=== PATIENT | male | born 1950 | race Caucasian/White ===

== ENCOUNTER 2016-12-09 14:33 | Inpatient (IN) | payer BC ==
[2016-12-09] MEDS ORDERED: SODIUM CHLORIDE 0.9% 500 ML IV STA ×2 (15:37→16:43)
[2016-12-09 16:08] LABS: ALT 185 U/L (21-72); AST 144 U/L (17-59); Alkaline Phosphatase 81 U/L (38-126); Amylase 63 U/L (30-110); Anion Gap 12 mmol/L; Blood Urea Nitrogen 19 mg/dL (9-20); Calcium 9.4 mg/dL (8.4-10.2); Carbon Dioxide 23 mmol/L (22-30); Chloride 108 mmol/L (98-107); Glucose 130 mg/dL (74-99); Non-African American GFR(MDRD) 56 (>60 ml/min/1.73 sqM); Potassium 4.2 mmol/L (3.5-5.1); Sodium 143 mmol/L (137-145); Total Bilirubin 1.3 mg/dL (0.2-1.3); Total Protein 8.1 g/dL (6.3-8.2)
[2016-12-09 16:09] LABS: INR 1.2 (<1.2); Partial Thromboplastin Time 22.3 sec (22.0-30.0); Prothrombin Time 11.6 sec (9.0-12.0)
[2016-12-09 16:20] LABS: Basophils # (A) 0.1 k/uL (0-0.2); Basophils % (A) 0 %; CH 30.6; CHCM 33.4; Eosinophils # (A) 0.1 k/uL (0-0.7); Eosinophils % (A) 1 %; HCT 50.5 % (39.0-53.0); HDW 2.56; HGB 16.9 gm/dL (13.0-17.5); Luc # (Auto) 0.09; Luc % (Auto) 1; Lymphocytes # (A) 0.6 k/uL (1.0-4.8); Lymphocytes % (A) 4 %; MCH 30.8 pg (25.0-35.0); MCHC 33.5 g/dL (31.0-37.0); MCV 91.9 fL (80.0-100.0); Mean Platelet Volume 6.5; Monocytes # (A) 0.8 k/uL (0-1.0); Monocytes % (A) 6 %; Neutrophils # (A) 11.8 k/uL (1.3-7.7); Neutrophils % (A) 88 %; RDW 13.2 % (11.5-15.5); WBC 13.4 k/uL (3.8-10.6); WBC (Perox) 14.43
[2016-12-09 16:27] LABS: Amorphous Sediment,Urine Rare /hpf; Appearance,Urine Cloudy (Clear); Bilirubin,Urine Negative (Negative); Glucose,Urine (UA) Negative (Negative); Ketones,Urine Negative (Negative); Leukocyte Esterase,Urine Moderate (Negative); Mucus,Urine Few /hpf; Nitrite,Urine Negative (Negative); PH, Urine 5.5 (5.0-8.0); Particle Count 5010; Protein,Urine Negative (Negative); RBC,Urine 8 /hpf (0-5); Specific Gravity,Urine 1.014 (1.001-1.035); Squamous Epithelial Cell,Urine 1 /hpf (0-4); UA Billing (MACRO vs. MICRO) MICRO; WBC,Urine 17 /hpf (0-5)
--- NOTE | 2016-12-09 16:31 | CT ---
EXAMINATION TYPE: CT abdomen pelvis wo con DATE OF EXAM: 12/09/2016 COMPARISON: NONE HISTORY: LEFT FLANK PAIN. HX OF KIDNEY STONES. CT DLP: 1341.7 mGycm Examination of the solid and hollow viscera is limited given the lack of contrast. FINDINGS: LUNG BASES: No evidence for nodule. No evidence for infiltrate. LIVER/GB: The gallbladder is unremarkable. No space-occupying hepatic lesion. PANCREAS: No pancreatic mass identified. No inflammatory process seen. SPLEEN: No evidence for splenomegaly. No intrasplenic lesions seen. ADRENALS: No adrenal nodules identified. No evidence for thickening. KIDNEYS: No evidence for renal mass. Large nonobstructing calculus lower pole right kidney measuring 1.2 cm. 2 mm nonobstructing calculus lower pole left kidney. No evidence for hydronephrosis at this t shabnam. Urinary bladder is not ideally distended. BOWEL: Appendix has a normal appearance. No evidence of bowel obstruction. No inflammatory process. Lymph nodes: No evidence for adenopathy greater than 1 cm. Abdominal aorta: Atheromatous changes seen. No evidence for aneurysm. Genital organs: No significant abnormality. Other: No significant abnormality. IMPRESSION: NONOBSTRUCTIVE BILATERAL NEPHROLITHIASIS.
[2016-12-09] MEDS ORDERED: SODIUM CHLORIDE 0.9% 1,000 ML IV ONE (16:50)
[2016-12-09] MEDS ORDERED: ACETAMINOPHEN TAB 325 MG TAB PO STA (17:40)
[2016-12-09] MEDS ORDERED: ACETAMINOPHEN TAB 325 MG TAB PO PRN (18:27)
[2016-12-09] MEDS ORDERED: NALOXONE 0.4 MG/ML 1 ML VIAL IV PRN (18:27)
[2016-12-09] MEDS ORDERED: MORPHINE SULFATE 4 MG/ML SYRINGE IV PRN (18:27)
--- NOTE | 2016-12-09 19:01 | ED ---
General Adult HPI - General Chief complaint: Abdominal Pain Stated complaint: poss kidney stones Time Seen by Provider: 12/09/16 15:37 Source: patient, family, RN notes reviewed Mode of arrival: wheelchair Limitations: no limitations - History of Present Illness Initial comments: 66-year-old male with past medical history of kidney stones and hypertension presents with 2-3 week history of left flank pain. Pain suddenly worsened at 2 AM this morning. Severe sharp left-sided pain. Pain was nonradiating. Pain resolved with medications at home. Then while at work today patient had an episode of significant nausea and vomiting. He also had subjective fever and chills. Denies hematuria. Denies current pain. Patient does have past medical history of renal stones. No chest pain or shortness of breath. - Related Data Home Medications Medication Instructions Recorded Confirmed Losartan Potassium [Cozaar] 100 mg PO DAILY 12/09/16 12/09/16 Oxycontin Unknown Dose 1 tab PO ONCE PRN 12/09/16 12/09/16 Allergies Allergy/AdvReac Type Severity Reaction Status Date / Time Penicillins Allergy Rash/Hives Verified 12/09/16 15:46 Review of Systems ROS Statement: Those systems with pertinent positive or pertinent negative responses have been documented in the HPI. ROS Other: All systems not noted in ROS Statement are negative. Past Medical History Past Medical History: Hypertension Additional Past Medical History / Comment(s): kidney stones History of Any Multi-Drug Resistant Organisms: None Reported Past Surgical History: Adenoidectomy, Tonsillectomy Past Psychological History: No Psychological Hx Reported Smoking Status: Never smoker Past Alcohol Use History: None Reported Past Drug Use History: None Reported General Exam Limitations: no limitations General appearance: alert, in no apparent distress Head exam: Present: atraumatic, normocephalic Eye exam: Present: normal appearance, PERRL ENT exam: Present: normal exam, mucous membranes dry Neck exam: Present: normal inspection, full ROM. Absent: meningismus Respiratory exam: Present: normal lung sounds bilaterally. Absent: respiratory distress, wheezes Cardiovascular Exam: Present: regular rate, normal rhythm GI/Abdominal exam: Present: soft. Absent: distended, tenderness, guarding Extremities exam: Present: normal inspection, normal capillary refill. Absent: pedal edema Back exam: Present: normal inspection. Absent: CVA tenderness (R), CVA tenderness (L) Neurological exam: Present: alert, oriented X3. Absent: motor sensory deficit Psychiatric exam: Present: normal affect, normal mood Skin exam: Present: warm, dry, diaphoretic. Absent: cyanosis Course Vital Signs 12/09/16 12/09/16 15:00 17:36 Temperature 100.7 F H 101.4 F H Pulse Rate 105 H 96 Respiratory 16 18 Rate Blood Pressure 100/55 103/52 O2 Sat by Pulse 95 96 Oximetry - Reevaluation(s) Reevaluation #1: 12/09/16 18:59 Patient remains pain-free, however he is febrile while in the department. Medical Decision Making - Medical Decision Making 66-year-old male with history of kidney stones presents with left flank pain, nausea vomiting or fever or chills. Patient is pain-free while in the emergency department. Laboratory studies reveal elevated white blood cell count of 13.4, creatinine 1.29 with no known baseline. Mild lactic acidosis of 2.5. CT is obtained and is negative for obstructing stones. There is stone in both the right and left kidneys. No hydroureter, no hydronephrosis. Urinalysis shows signs of mild infection with a white blood cell count of 17. Blood culture and urine culture are pending. Patient remains febrile and has nausea along emergency department. Case is discussed with urology, there is no need for urgent urological evaluation. Patient does remain febrile and has persistent nausea, he will be admitted for IV antibiotics and IV hydration. Diagnosis: Renal stone- likely passed, UTI, sepsis, lactic acidosis, dehydration. - Lab Data Result diagrams: 12/09/16 15:44 12/09/16 15:44 Lab Results 12/09/16 12/09/16 12/09/16 Range/Units 15:44 15:44 15:44 WBC 13.4 H (3.8-10.6) k/uL RBC 5.50 (4.30-5.90) m/uL Hgb 16.9 (13.0-17.5) gm/dL Hct 50.5 (39.0-53.0) % MCV 91.9 (80.0-100.0) fL MCH 30.8 (25.0-35.0) pg MCHC 33.5 (31.0-37.0) g/dL RDW 13.2 (11.5-15.5) % Plt Count 208 (150-450) k/uL Neutrophils % 88 % Lymphocytes % 4 % Monocytes % 6 % Eosinophils % 1 % Basophils % 0 % Neutrophils # 11.8 H (1.3-7.7) k/uL Lymphocytes # 0.6 L (1.0-4.8) k/uL Monocytes # 0.8 (0-1.0) k/uL Eosinophils # 0.1 (0-0.7) k/uL Basophils # 0.1 (0-0.2) k/uL PT 11.6 (9.0-12.0) sec INR 1.2 H (<1.2) APTT 22.3 (22.0-30.0) sec Sodium 143 (137-145) mmol/L Potassium 4.2 (3.5-5.1) mmol/L Chloride 108 H (98-107) mmol/L Carbon Dioxide 23 (22-30) mmol/L Anion Gap 12 mmol/L BUN 19 (9-20) mg/dL Creatinine 1.29 H (0.66-1.25) mg/dL Est GFR (MDRD) Af Amer >60 (>60 ml/min/1.73 sqM) Est GFR (MDRD) Non-Af 56 (>60 ml/min/1.73 sqM) Glucose 130 H (74-99) mg/dL Plasma Lactic Acid Tony (0.7-2.0) mmol/L Calcium 9.4 (8.4-10.2) mg/dL Total Bilirubin 1.3 (0.2-1.3) mg/dL AST 144 H (17-59) U/L ALT 185 H (21-72) U/L Alkaline Phosphatase 81 (38-126) U/L Total Protein 8.1 (6.3-8.2) g/dL Albumin 4.7 (3.5-5.0) g/dL Amylase 63 (30-110) U/L Lipase 158 (23-300) U/L Urine Color Urine Appearance (Clear) Urine pH (5.0-8.0) Ur Specific [place] (1.001-1.035) Urine Protein (Negative) Urine Glucose (UA) (Negative) Urine Ketones (Negative) Urine Blood (Negative) Urine Nitrite (Negative) Urine Bilirubin (Negative) Urine Urobilinogen (<2.0) mg/dL Ur Leukocyte Esterase (Negative) Urine RBC (0-5) /hpf Urine WBC (0-5) /hpf Ur Squamous Epith Cells (0-4) /hpf Amorphous Sediment (None) /hpf Hyaline Casts (0-2) /lpf Urine Mucus (None) /hpf 12/09/16 12/09/16 Range/Units 15:50 16:05 WBC (3.8-10.6) k/uL RBC (4.30-5.90) m/uL Hgb (13.0-17.5) gm/dL Hct (39.0-53.0) % MCV (80.0-100.0) fL MCH (25.0-35.0) pg MCHC (31.0-37.0) g/dL RDW (11.5-15.5) % Plt Count (150-450) k/uL Neutrophils % % Lymphocytes % % Monocytes % % Eosinophils % % Basophils % % Neutrophils # (1.3-7.7) k/uL Lymphocytes # (1.0-4.8) k/uL Monocytes # (0-1.0) k/uL Eosinophils # (0-0.7) k/uL Basophils # (0-0.2) k/uL PT (9.0-12.0) sec INR (<1.2) APTT (22.0-30.0) sec Sodium (137-145) mmol/L Potassium (3.5-5.1) mmol/L Chloride (98-107) mmol/L Carbon Dioxide (22-30) mmol/L Anion Gap mmol/L BUN (9-20) mg/dL Creatinine (0.66-1.25) mg/dL Est GFR (MDRD) Af Amer (>60 ml/min/1.73 sqM) Est GFR (MDRD) Non-Af (>60 ml/min/1.73 sqM) Glucose (74-99) mg/dL Plasma Lactic Acid Tony 2.5 H* (0.7-2.0) mmol/L Calcium (8.4-10.2) mg/dL Total Bilirubin (0.2-1.3) mg/dL AST (17-59) U/L ALT (21-72) U/L Alkaline Phosphatase (38-126) U/L Total Protein (6.3-8.2) g/dL Albumin (3.5-5.0) g/dL Amylase (30-110) U/L Lipase (23-300) U/L Urine Color Yellow Urine Appearance Cloudy (Clear) Urine pH 5.5 (5.0-8.0) Ur Specific [place] 1.014 (1.001-1.035) Urine Protein Negative (Negative) Urine Glucose (UA) Negative (Negative) Urine Ketones Negative (Negative) Urine Blood Trace H (Negative) Urine Nitrite Negative (Negative) Urine Bilirubin Negative (Negative) Urine Urobilinogen 3.0 (<2.0) mg/dL Ur Leukocyte Esterase Moderate H (Negative) Urine RBC 8 H (0-5) /hpf Urine WBC 17 H (0-5) /hpf Ur Squamous Epith Cells 1 (0-4) /hpf Amorphous Sediment Rare H (None) /hpf Hyaline Casts 9 H (0-2) /lpf Urine Mucus Few H (None) /hpf Disposition Clinical Impression: Urinary tract infection Disposition: ADMITTED IP TO THIS [facility] Condition: Stable Referrals: John Mccrary MD [Primary Care Provider] - 1-2 days Decision to Admit Reason: Admit from EC Decision Date: 12/09/16 Decision Time: 18:05
[2016-12-09] MEDS: DEXTROSE 5%-0.45% NACL 1,000 ML IV SCH (20:35)
[2016-12-10] MEDS: DEXTROSE 5%-0.45% NACL 1,000 ML IV SCH (07:52)
[2016-12-10 07:55] VITALS: BP 114/66; PULSE 70; RESP 16; TEMP 97.1
[2016-12-10 08:47] LABS: Basophils % (A) 0 %; CH 30.9; CHCM 33.4; Eosinophils # (A) 0.2 k/uL (0-0.7); Eosinophils % (A) 2 %; HCT 42.1 % (39.0-53.0); HDW 2.48; HGB 14.5 gm/dL (13.0-17.5); Luc # (Auto) 0.22; Luc % (Auto) 2; Lymphocytes # (A) 1.3 k/uL (1.0-4.8); Lymphocytes % (A) 14 %; MCHC 34.5 g/dL (31.0-37.0); MCV 92.7 fL (80.0-100.0); Mean Platelet Volume 6.5; Monocytes # (A) 0.9 k/uL (0-1.0); Monocytes % (A) 10 %; Neutrophils # (A) 6.7 k/uL (1.3-7.7); Neutrophils % (A) 72 %; RBC 4.54 m/uL (4.30-5.90); RDW 13.3 % (11.5-15.5); WBC 9.3 k/uL (3.8-10.6); WBC (Perox) 9.29
[2016-12-10 09:08] LABS: ALT 138 U/L (21-72); AST 61 U/L (17-59); Alkaline Phosphatase 62 U/L (38-126); Anion Gap 8 mmol/L; Blood Urea Nitrogen 17 mg/dL (9-20); Calcium 8.4 mg/dL (8.4-10.2); Carbon Dioxide 20 mmol/L (22-30); Chloride 111 mmol/L (98-107); Glucose 95 mg/dL (74-99); Non-African American GFR(MDRD) >60 (>60 ml/min/1.73 sqM); Potassium 4.1 mmol/L (3.5-5.1); Sodium 139 mmol/L (137-145); Total Bilirubin 1.3 mg/dL (0.2-1.3); Total Protein 6.1 g/dL (6.3-8.2)
--- NOTE | 2016-12-10 13:13 | P.GSCN ---
History of Present Illness Consult date: 12/10/16 Reason for Consult: Renal calculi Requesting physician: Nakul Chadwick History of present illness: The patient is a 66-year-old male with a history of urolithiasis. One to 2 years ago, he underwent ureteroscopic removal of a calculus. He was told by Dr. Gambino at that time that he had a residual right renal calculus, for which ESWL was to be performed. However, the calculus could not be seen on a plain radiograph and therefore the procedure was not performed. The patient failed to schedule a follow-up appointment. On the night of December 08, he experienced severe left flank pain associated with chills, nausea, vomiting, dysuria, and hematuria. A computed tomography scan showed a 2 mm left lower pole renal calculus, a 12 mm right lower pole renal calculus, with no ureteral calculi seen. There was no evidence of hydronephrosis. He is feeling considerably better today. Review of Systems - Constitutional Reports chills - Gastrointestinal Reports nausea, Reports vomiting - Genitourinary Reports dysuria, Reports hematuria Past Medical History Past Medical History: Hypertension Additional Past Medical History / Comment(s): kidney stones History of Any Multi-Drug Resistant Organisms: None Reported Past Surgical History: Adenoidectomy, Tonsillectomy Past Anesthesia/Blood Transfusion Reactions: No Reported Reaction Past Psychological History: No Psychological Hx Reported Smoking Status: Never smoker Past Alcohol Use History: None Reported Past Drug Use History: None Reported - Past Family History Father Family Medical History: Liver Disease Medications and Allergies Home Medications Medication Instructions Recorded Confirmed Type Losartan Potassium [Cozaar] 100 mg PO DAILY 12/09/16 12/09/16 History Oxycontin Unknown Dose 1 tab PO ONCE PRN 12/09/16 12/09/16 History Allergies Allergy/AdvReac Type Severity Reaction Status Date / Time Penicillins Allergy Rash/Hives Verified 12/09/16 15:46 Surgical - Exam Vital Signs Temp Pulse Resp BP Pulse Ox 100.7 F H 105 H 16 100/55 95 12/09/16 15:00 12/09/16 15:00 12/09/16 15:00 12/09/16 15:00 12/09/16 15:00 - General well developed, well nourished, no distress - Respiratory normal respiratory effort - Abdomen Abdomen: soft, non tender, no guarding, no rigid, no rebound - Genitourinary normal penis with no external lesions, testicles non-tender - Neurologic no disoriented, no combative - Psychiatric oriented to time, oriented to person, oriented to place, speech is normal, memory intact Results - Labs 12/10/16 07:45 12/10/16 07:45 Abnormal Lab Results - Last 24 Hours (Table) 12/09/16 12/09/16 12/09/16 Range/Units 15:44 15:44 15:44 WBC 13.4 H (3.8-10.6) k/uL Neutrophils # 11.8 H (1.3-7.7) k/uL Lymphocytes # 0.6 L (1.0-4.8) k/uL INR 1.2 H (<1.2) Chloride 108 H (98-107) mmol/L Carbon Dioxide (22-30) mmol/L Creatinine 1.29 H (0.66-1.25) mg/dL Glucose 130 H (74-99) mg/dL Plasma Lactic Acid Tony (0.7-2.0) mmol/L AST 144 H (17-59) U/L ALT 185 H (21-72) U/L Total Protein (6.3-8.2) g/dL Albumin (3.5-5.0) g/dL Urine Blood (Negative) Ur Leukocyte Esterase (Negative) Urine RBC (0-5) /hpf Urine WBC (0-5) /hpf Amorphous Sediment (None) /hpf Hyaline Casts (0-2) /lpf Urine Mucus (None) /hpf 12/09/16 12/09/16 12/10/16 Range/Units 15:50 16:05 07:45 WBC (3.8-10.6) k/uL Neutrophils # (1.3-7.7) k/uL Lymphocytes # (1.0-4.8) k/uL INR (<1.2) Chloride 111 H (98-107) mmol/L Carbon Dioxide 20 L (22-30) mmol/L Creatinine (0.66-1.25) mg/dL Glucose (74-99) mg/dL Plasma Lactic Acid Tony 2.5 H* (0.7-2.0) mmol/L AST 61 H (17-59) U/L ALT 138 H (21-72) U/L Total Protein 6.1 L (6.3-8.2) g/dL Albumin 3.4 L (3.5-5.0) g/dL Urine Blood Trace H (Negative) Ur Leukocyte Esterase Moderate H (Negative) Urine RBC 8 H (0-5) /hpf Urine WBC 17 H (0-5) /hpf Amorphous Sediment Rare H (None) /hpf Hyaline Casts 9 H (0-2) /lpf Urine Mucus Few H (None) /hpf Microbiology - Last 24 Hours (Table) 12/09/16 15:50 Urine Culture - Preliminary Urine,Voided Diabetes panel 12/09/16 12/10/16 Range/Units 15:44 07:45 Sodium 143 139 (137-145) mmol/L Potassium 4.2 4.1 (3.5-5.1) mmol/L Chloride 108 H 111 H (98-107) mmol/L Carbon Dioxide 23 20 L (22-30) mmol/L BUN 19 17 (9-20) mg/dL Creatinine 1.29 H 1.11 (0.66-1.25) mg/dL Glucose 130 H 95 (74-99) mg/dL Calcium 9.4 8.4 (8.4-10.2) mg/dL AST 144 H 61 H (17-59) U/L ALT 185 H 138 H (21-72) U/L Alkaline Phosphatase 81 62 (38-126) U/L Total Protein 8.1 6.1 L (6.3-8.2) g/dL Albumin 4.7 3.4 L (3.5-5.0) g/dL Calcium panel 12/09/16 12/10/16 Range/Units 15:44 07:45 Calcium 9.4 8.4 (8.4-10.2) mg/dL Albumin 4.7 3.4 L (3.5-5.0) g/dL Pituitary panel 12/09/16 12/10/16 Range/Units 15:44 07:45 Sodium 143 139 (137-145) mmol/L Potassium 4.2 4.1 (3.5-5.1) mmol/L Chloride 108 H 111 H (98-107) mmol/L Carbon Dioxide 23 20 L (22-30) mmol/L BUN 19 17 (9-20) mg/dL Creatinine 1.29 H 1.11 (0.66-1.25) mg/dL Glucose 130 H 95 (74-99) mg/dL Calcium 9.4 8.4 (8.4-10.2) mg/dL Adrenal panel 12/09/16 12/10/16 Range/Units 15:44 07:45 Sodium 143 139 (137-145) mmol/L Potassium 4.2 4.1 (3.5-5.1) mmol/L Chloride 108 H 111 H (98-107) mmol/L Carbon Dioxide 23 20 L (22-30) mmol/L BUN 19 17 (9-20) mg/dL Creatinine 1.29 H 1.11 (0.66-1.25) mg/dL Glucose 130 H 95 (74-99) mg/dL Calcium 9.4 8.4 (8.4-10.2) mg/dL Total Bilirubin 1.3 1.3 (0.2-1.3) mg/dL AST 144 H 61 H (17-59) U/L ALT 185 H 138 H (21-72) U/L Alkaline Phosphatase 81 62 (38-126) U/L Total Protein 8.1 6.1 L (6.3-8.2) g/dL Albumin 4.7 3.4 L (3.5-5.0) g/dL - Imaging CT scan - abdomen: report reviewed, image reviewed Assessment and Plan (1) Bilateral kidney stones Status: Acute Plan: The patient is a 66-year-old male admitted with left flank pain, associated with nausea and vomiting. I reviewed the computed tomography scan. This shows a 2 mm left lower pole renal calculus and an 11.6 mm right lower pole renal calculus. Both are non-obstructing, and no ureteral calculi are seen. It was highly unlikely that the flank pain is due to the small left lower pole renal calculus. Urinalysis showed slight pyuria, and a urine culture is pending. I anticipate the culture will be negative, and he is feeling much better today. I believe it would be reasonable to discharge him home on oral antibiotics. He will follow-up with Dr. Gambino as needed. I do not recommend removal of the small left renal calculus. Consideration could be given to ureteroscopy with laser lithotripsy to remove the large right lower pole renal calculus. Please notify us if we can be of any further assistance. Time with Patient: Greater than 30
--- NOTE | 2016-12-10 15:19 | P.HPIM ---
History of Present Illness H&P Date: 12/10/16 Chief Complaint: Left flank pain This serves both an H&P and discharge summary This 66-year-old pleasant gentleman patient of Dr. Rambo Mccrary. He has underlying history off nephrolithiasis hypertension, admitted to the hospital secondary to left flank pain which has been going on for the past 2-3 weeks, sed rate with nausea and vomiting, patient has some minimal hematuria no urinary difficulties however he started having some fever, 101 yesterday prior to the ER evaluation. Patient denies any drug resistance UTI in the past patient is currently requesting to be discharged to home, he was seen by Dr. Amezquita earlier after his admission today for the nonobstructing nephrolithiasis. In the emergency room CAT scan findings shows 2 mm left lower pole renal calculus and 12 mm bright lower pole calculus without any ureteral calculi seen , no evidence of hydronephrosis, admitting labs shows lactic acid of 2.5, creatinine of 1.11, WBC count of 13.4 Review of Systems Constitutional: Reports as per HPI, Reports chills, Reports fever, Denies anorexia, Denies chronic headaches, Denies chronic pain, Denies daytime sleepiness, Denies fatigue, Denies lethargy, Denies malaise, Denies night sweats , Denies poor appetite, Denies sweats, Denies weakness, Denies weight gain, Denies weight loss Ears, nose, mouth and throat: Reports as per HPI, Denies ant. neck pain, Denies bleeding gums, Denies dental pain, Denies dysphagia, Denies epistaxis, Denies headache, Denies hoarseness, Denies mouth pain, Denies nasal congestion, Denies nasal discharge, Denies neck fullness/pressure, Denies neck lump, Denies nose pain, Denies odynophagia, Denies post-nasal drip, Denies sinus pain, Denies sinus pressure, Denies swelling in mouth, Denies swelling in throat, Denies sore throat, Denies vertigo, Denies voice changes Cardiovascular: Reports as per HPI, Denies chest pain, Denies claudication, Denies decreased exercise tolerance, Denies dyspnea on exertion, Denies edema, Denies high blood pressure, Denies irregular heart beat, Denies leg edema, Denies lightheadedness, Denies orthopnea, Denies palpitations, Denies paroxysmal nocturnal dyspnea, Denies phlebitis, Denies rapid heart beat, Denies shortness of breath, Denies syncope Respiratory: Reports as per HPI, Denies congestion, Denies cough, Denies cough with sputum, Denies dyspnea, Denies excessive sputum, Denies hemoptysis, Denies home oxygen, Denies pain, Denies pain on inspiration, Denies pleurisy, Denies respiratory infections, Denies sleep apnea, Denies snoring, Denies wheezing Gastrointestinal: Reports as per HPI, Reports loss of appetite, Reports nausea, Reports vomiting, Denies abdominal pain, Denies belching, Denies bloating, Denies BRBPR, Denies change in bowel habits, Denies coffee ground emesis, Denies constipation, Denies diarrhea, Denies dyspepsia, Denies early satiety, Denies excessive gas, Denies heartburn, Denies hematemesis, Denies hematochezia , Denies indigestion, Denies jaundice, Denies lactose intolerance, Denies melena Genitourinary: Reports as per HPI, Reports hematuria, Denies decreased libido, Denies difficulties fathering child, Denies discharge, Denies dysuria, Denies erectile dysfunction, Denies flank pain, Denies genital pain, Denies genital sores, Denies impotence, Denies incontinence, Denies kidney stones, Denies nocturia, Denies polyuria, Denies testicular lump, Denies testicular pain, Denies urinary frequency, Denies urinary hesitancy, Denies urinary retention Musculoskeletal: Reports as per HPI, Denies arm numbness/tingling, Denies atrophy, Denies fractures, Denies frequent falls, Denies gait dysfunction, Denies hot joints, Denies leg numbness/tingling, Denies limitation of motion, Denies loss of height, Denies low back pain, Denies morning stiffness, Denies muscle cramps, Denies muscle weakness, Denies myalgias, Denies neck pain, Denies neck stiffness, Denies prior amputations, Denies redness of joints, Denies shooting arm pain, Denies shooting leg pain Integumentary: Reports as per HPI, Denies acne, Denies boils, Denies brittle nails, Denies change in hair/nails, Denies color changes, Denies darkening of skin, Denies depigmentation, Denies dryness, Denies foot/leg ulcers, Denies growths, Denies hirsutism, Denies lesions, Denies onychomycosis, Denies pruritus , Denies rash, Denies sores, Denies striae, Denies unusual bruising, Denies wounds Neurological: Reports as per HPI, Denies aphasia, Denies ataxia, Denies balance difficulties, Denies burning pain, Denies change in mentation, Denies change in smell/taste, Denies change in speech, Denies confusion, Denies convulsions, Denies double vision, Denies gait dysfunction, Denies head injury, Denies headaches, Denies hearing difficulties, Denies lack of coordination, Denies loss of vision, Denies memory loss, Denies migraines, Denies motor disturbance, Denies numbness, Denies paralysis, Denies paresthesias, Denies seizures, Denies sensory deficit, Denies spasticity, Denies syncope, Denies tic, Denies tingling , Denies transient paralysis, Denies tremors, Denies vertigo, Denies weakness, Denies visual changes Psychiatric: Reports as per HPI Endocrine: Reports as per HPI, Denies cold intolerance, Denies deepening of the voice, Denies excessive sweating, Denies excessive thirst, Denies fatigue, Denies flushing, Denies heat intolerance, Denies high blood sugars, Denies increase in ring/shoe/hat size, Denies low blood sugars, Denies nocturia, Denies palpitations, Denies polydipsia, Denies polyphagia, Denies polyuria, Denies proptosis, Denies recent glucocorticoid use, Denies thyroid mass, Denies weight change Hematologic/Lymphatic: Reports as per HPI Allergic/Immunologic: Reports as per HPI Past Medical History Past Medical History: Hypertension Additional Past Medical History / Comment(s): kidney stones History of Any Multi-Drug Resistant Organisms: None Reported Past Surgical History: Adenoidectomy, Tonsillectomy Past Anesthesia/Blood Transfusion Reactions: No Reported Reaction Past Psychological History: No Psychological Hx Reported Smoking Status: Never smoker Past Alcohol Use History: None Reported Past Drug Use History: None Reported - Past Family History Father Family Medical History: Liver Disease Mother Family Medical History: Diabetes Mellitus, Neurologic Disorder (Guillain-Grier) Brother(s) History Unknown: Yes (No brothers) Sister(s) History Unknown: Yes (One sister healthy) Daughter(s) History Unknown: Yes (2 daughters healthy) Son(s) History Unknown: Yes (One son healthy) Medications and Allergies Home Medications Medication Instructions Recorded Confirmed Type Losartan Potassium [Cozaar] 100 mg PO DAILY 12/09/16 12/09/16 History Oxycontin Unknown Dose 1 tab PO ONCE PRN 12/09/16 12/09/16 History Allergies Allergy/AdvReac Type Severity Reaction Status Date / Time Penicillins Allergy Rash/Hives Verified 12/09/16 15:46 Physical Exam Vitals: Vital Signs Temp Pulse Pulse Resp BP BP Pulse Ox 12/10/16 07:00 97.1 F L 70 16 114/66 94 L 12/09/16 23:25 98.2 F 84 20 105/60 94 L 12/09/16 21:10 98.7 F 93 20 105/62 96 12/09/16 19:41 100.9 F H 97 16 120/58 96 12/09/16 19:00 99.5 F 12/09/16 17:36 101.4 F H 96 18 103/52 96 Intake and Output 12/10/16 12/10/16 12/10/16 06:59 14:59 22:59 Intake Total 100 Balance 100 Intake: Oral 100 Other: Voiding Method Toilet # Voids 3 - Constitutional General appearance: cooperative, no acute distress - EENT Eyes: anicteric sclerae, EOMI, dentition normal, normal appearance ENT: hard of hearing, NA/AT, normal oropharynx - Neck Neck: normal ROM - Respiratory Respiratory: bilateral: CTA, negative: diminished, dullness, rales - Cardiovascular Rhythm: regular Heart sounds: normal: S1, S2 Abnormal Heart Sounds: no systolic murmur, no diastolic murmur, no rub, no S3 Gallop, no S4 Gallop, no click, no other - Gastrointestinal General gastrointestinal: normal bowel sounds, splenomegaly - Integumentary Integumentary: normal, normal turgor - Neurologic Neurologic: CNII-XII intact - Musculoskeletal Musculoskeletal: gait normal, no generalized weakness, strength equal bilaterally, no right sided weakness, no left sided weakness - Psychiatric Psychiatric: A&O x's 3, appropriate affect, intact judgment & insight Results CBC & Chem 7: 12/10/16 07:45 12/10/16 07:45 Labs: Abnormal Lab Results - Last 24 Hours (Table) 12/09/16 12/09/16 12/09/16 Range/Units 15:44 15:44 15:44 WBC 13.4 H (3.8-10.6) k/uL Neutrophils # 11.8 H (1.3-7.7) k/uL Lymphocytes # 0.6 L (1.0-4.8) k/uL INR 1.2 H (<1.2) Chloride 108 H (98-107) mmol/L Carbon Dioxide (22-30) mmol/L Creatinine 1.29 H (0.66-1.25) mg/dL Glucose 130 H (74-99) mg/dL Plasma Lactic Acid Tony (0.7-2.0) mmol/L AST 144 H (17-59) U/L ALT 185 H (21-72) U/L Total Protein (6.3-8.2) g/dL Albumin (3.5-5.0) g/dL Urine Blood (Negative) Ur Leukocyte Esterase (Negative) Urine RBC (0-5) /hpf Urine WBC (0-5) /hpf Amorphous Sediment (None) /hpf Hyaline Casts (0-2) /lpf Urine Mucus (None) /hpf 12/09/16 12/09/16 12/10/16 Range/Units 15:50 16:05 07:45 WBC (3.8-10.6) k/uL Neutrophils # (1.3-7.7) k/uL Lymphocytes # (1.0-4.8) k/uL INR (<1.2) Chloride 111 H (98-107) mmol/L Carbon Dioxide 20 L (22-30) mmol/L Creatinine (0.66-1.25) mg/dL Glucose (74-99) mg/dL Plasma Lactic Acid Tony 2.5 H* (0.7-2.0) mmol/L AST 61 H (17-59) U/L ALT 138 H (21-72) U/L Total Protein 6.1 L (6.3-8.2) g/dL Albumin 3.4 L (3.5-5.0) g/dL Urine Blood Trace H (Negative) Ur Leukocyte Esterase Moderate H (Negative) Urine RBC 8 H (0-5) /hpf Urine WBC 17 H (0-5) /hpf Amorphous Sediment Rare H (None) /hpf Hyaline Casts 9 H (0-2) /lpf Urine Mucus Few H (None) /hpf Microbiology - Last 24 Hours (Table) 12/09/16 16:05 Blood Culture Gram Stain - Preliminary Blood 12/09/16 16:05 Blood Culture - Final Blood 12/09/16 15:50 Urine Culture - Preliminary Urine,Voided Thrombosis Risk Factor Assmnt - Choose All That Apply Any of the Below Risk Factors Present?: Yes Each Factor Represents 1 point: Obesity (BMI >25) Other Risk Factors: Yes Each Risk Factor Represents 3 Points: Family history of DVT/PE Thrombosis Risk Factor Assessment Total Risk Factor Score: 4 Thrombosis Risk Factor Assessment Level: Moderate Risk Assessment and Plan Plan: 1. Suspected pyelonephritis, underlying history of kidney stones, patient will be started on ciprofloxacin 500 mg twice a day for 10 days, patient was seen by urology, patient's cultures were sent however this has not resulted in less than 24 hours, patient wanted to go home today which seems to be reasonable however he needs to call Dr. Mccrary for the appropriate culture and sensitivity within the next 3 days for the appropriate changes of the antibiotic if needed patient would be given Zofran for emesis, and Cipro antibiotic. I see is being discharged earlier than planned despite his earlier temperature patient is feeling much better, the appropriate call needs to be done by the patient to follow up on his blood culture and urine culture reports 2. Acute renal sufficiency with CK D stage II, nephrotoxins will be avoided, hydration is advocated and recommended 3. Nephrolithiasis bilateral with right being 1.2 cm and left being 2 mm, no hydronephrosis identified, no ureteral calculi identified, Dr. Amezquita has seen him for Dr. Gambino for which at that time he was recommended to have ESWL however the calculus cannot be identified on plain radiograph however thereafter the procedure was not performed patient is scheduled to be seen by him for outpatient follow-up for laser lithotripsy on the right kidney stone Hypertensive Vascular disease on losartan 100 mg daily Discharge Medication List Losartan Potassium [Cozaar] 100 mg PO DAILY 12/09/16 [History] Oxycontin Unknown Dose 1 tab PO ONCE PRN 12/09/16 [History] Ciprofloxacin HCl [Cipro] 500 mg PO Q12HR #20 tablet 12/10/16 [Rx] Ondansetron [Zofran] 4 mg PO Q8HR PRN #30 tab 12/10/16 [Rx]
== END 2016-12-10 14:01 | disposition home or self-care (01) | DRG 690 ==
LOC: EC 14:33 → 4MS4W 18:27
PROVIDERS: ADMIT Internal Medicine Geriatric Medicine; ATTEND Internal Medicine Geriatric Medicine
DX: N12 Tubulo-interstitial nephritis, not specified as acute or chronic (principal); E87.2 Acidosis; E86.0 Dehydration; N20.0 Calculus of kidney; I12.9 Hypertensive chronic kidney disease with stage 1 through stage 4 chronic kidney disease, or unspecified chronic kidney disease; N18.2 Chronic kidney disease, stage 2 (mild); N28.9 Disorder of kidney and ureter, unspecified; Z79.899 Other long term (current) drug therapy; Z87.442 Personal history of urinary calculi; Z88.0 Allergy status to penicillin
CPT/HCPCS: 36415; 74176; 80053; 81001; 82150; 83605; 83690; 85025; 85610; 85730; 86850; 86900; 86901; 87040; 87077; 87086; 87186; 96361; 96365; 99285

== ENCOUNTER → 2017-06-22 | Day surgery (SDC) | payer BC, MEDICARE ==
[2017-06-17 14:48] VITALS: BMI 39.0
[~2017-06-22] MED LIST: LACTATED RINGERS 1,000 ML IV SCH; LIDOCAINE 1% 20 ML VIAL (10MG/ML) FOR IV START INTRADERMA ONE; PROPOFOL 10 MG/ML 20 ML VIAL IV ONE
[2017-06-22 09:53] VITALS: TEMP 98.3
[2017-06-22 11:53] VITALS: RESP 16
--- NOTE | 2017-06-22 11:55 | P.PCN ---
Date of Procedure: 06/22/17 Procedure(s) Performed: Procedure: Total colonoscopy. Preoperative diagnosis: Screening for neoplasia, patient has history of polyps. Postoperative diagnosis: Exam within normal limits. Preparation: HalfLytely prep. Sedation: Was provided by anesthesia. Brief clinical history: The patient is a 67-year-old male who is scheduled for this evaluation because of history of polyps. His last exam was in January 2013. At this time, he has no abdominal complaints, bleeding or anemia. Procedure: With the patient on his left lateral decubitus position and after informed consent and adequate sedation, the perianal area was inspected and it did not show any fissures or fistulas. There were no masses felt on digital rectal examination. The Olympus CFQ 160L video colonoscope was then inserted in the rectum in the usual fashion and advanced to the cecum. The mucosa appeared healthy. No polyps or tumors were seen or any obvious diverticular disease or other pathology. I retroflexed the endoscope in the rectum before the endoscope was withdrawn. The patient tolerated the procedure well. Plan: The patient was reassured. He will follow up with you as planned and I recommended repeat exam in 5 years.
[2017-06-22 12:05] VITALS: BP 141/82; PULSE 77
== END ==
LOC: ORWHC2ENDO 08:59
DX: Z12.11 Encounter for screening for malignant neoplasm of colon (principal); Z86.010 Personal history of colon polyps; I10 Essential (primary) hypertension; Z88.0 Allergy status to penicillin; Z79.899 Other long term (current) drug therapy
CPT/HCPCS: J2704; G0105